=== PATIENT | female | born 1975 | race Caucasian/White ===

== ENCOUNTER → 2022-02-01 | Emergency (ER) | payer OTHER | END | disposition home or self-care (01) | LOC: ER 20:00 | DX: S01.81XA Laceration without foreign body of other part of head, initial encounter (principal); W05.1XXA Fall from non-moving nonmotorized scooter, initial encounter; Y93.89 Activity, other specified; Y92.89 Other specified places as the place of occurrence of the external cause; Y99.9 Unspecified external cause status; Z88.6 Allergy status to analgesic agent ==